=== PATIENT | female | born 1970 | race Caucasian/White ===

== ENCOUNTER 2016-11-14 11:41 | Day surgery (SDC) | payer BC ==
--- NOTE | ~2016-11-14 | OP ---
Record Of Operation [facility] [address] [place]. [address] NAME: JAMI SOTO : 72 STATUS : [facility]#: [id number] AGE: 45 ADM/REG DATE : 11/14/16 MR#: [id number] REPORT SERV DATE: 11/14/16 DICTATED BY: MALIK ORTEGA DATE: 11/14/16 REPORT STATUS : Draft TRANSCRIBED BY: MODL DATE: 11/14/16 DATE OF PROCEDURE: 11/14/2016 PREOPERATIVE DIAGNOSIS: Left sphenoid sinusitis. POSTOPERATIVE DIAGNOSIS: Left sphenoid sinusitis. PROCEDURE: Left sphenoid sinusotomy with tissue removal. SURGEON: Malik Ortega M.D. ANESTHESIA: General endotracheal. ESTIMATED BLOOD LOSS: 5 mL. INTRAOPERATIVE FLUIDS: 700 mL crystalloid. INTRAOPERATIVE FINDINGS: Small opening identified superiorly in the sphenoid sinus, apparently, at the site of her previous sphenoid sinusotomy. In the area of the rostrum of the sphenoid as confirmed with the fusion guidance system was the bulk of the sphenoid sinus. This was opened with an osteotome and the two openings were created in continuity to create one single large opening into the left sphenoid sinus. With the large opening created, no stenting was required. There was purulent material within the left sphenoid sinus which was collected for routine culture. OPERATIVE PROCEDURE: The patient was identified in the holding room, and transported to the operating room. In the operating room, the patient was placed on the operating table in supine position. Following induction of anesthesia, the patient was intubated without difficulty. At this point, the instrumentation was positioned for the fusion guidance system. Afrin-soaked pledgets were placed to the nose, bilaterally. The image guidance system was then registered. Accuracy was confirmed following rigid striation. The patient was then prepped and draped in preparation for her nasal surgery. A rigid nasal endoscopy was performed. There was no purulent debris arising from the sphenoid sinus; however, there was no visible opening into the sinus identified at this point. As noted above, there was a small depression in the superior aspect of the sphenoid sinus which appeared to be the site of previous sphenoid sinusotomy. A #7 suction was gently placed into this area. Upon penetrating the scar, there was purulent drainage identified, which was arising from the sphenoid sinus. The drainage was collected in a Lukens trap and sent for routine culture. On examining the fusion system with the pointer, the area of the sphenoid sinusotomy entered into a small portion of the sphenoid sinus. The bulk of the sphenoid sinus was, however, deep to the sphenoid rostrum. Gentle palpation of this area with a suction did not penetrate the sphenoid sinus. As such, an osteotome was used to create a small window in this area. This did create an opening into the sphenoid sinus which was created in continuity with the previous existing defect, superiorly. Additional bone and soft tissue was removed to create a larger opening into the sphenoid sinus. There was moderate inflammation of the mucosa within the sphenoid sinus with no residual purulent drainage or Record Of Operation [address] [address] NAME: JAMI SOTO : 72 STATUS : [facility] PAT#: [id number] AGE: 45 ADM/REG DATE : 11/14/16 MR#: [id number] REPORT SERV DATE: 11/14/16 DICTATED BY: MALIK ORTEGA DATE: 11/14/16 REPORT STATUS : Draft TRANSCRIBED BY: RADHA DATE: 11/14/16 debris evident. With the large opening into the sphenoid sinus, I opted not to place a dissolvable stent, as had been discussed with the patient, preoperatively. At this point, there was no significant bleeding. The patient was awakened from anesthesia, extubated in the operating room, transported to recovery room in good condition. The patient tolerated the procedure well. There were no apparent complications. SPECIMENS: Included tissue from the left sphenoid sinus with aspirate from the left sphenoid sinus for routine culture. TF/MODL Malik Ortega M.D. / [id number] CC: Allyn Carlson JOHN D.
[~2016-11-14 11:41] MED LIST: DULERA 200 MCG/13 GM INH; FLONASE NAS; KLONO1 PO; PRILOSEC40 MG PO; SINGULAIR1 PO; SPIRIVA INH; [UNRECOGNIZED DRUG - OTHER] SC
== END 2016-11-14 17:37 | disposition home or self-care (01) ==
LOC: SDC 11:41
PROVIDERS: Otolaryngology
PROC: 09B Ear, Nose, Sinus, Excision (ICD-10-PCS; principal; 2016-11-14 13:15)
DX: J32.3 Chronic sphenoidal sinusitis (principal); J45.909 Unspecified asthma, uncomplicated; Z79.51 Long term (current) use of inhaled steroids; F41.9 Anxiety disorder, unspecified; E04.1 Nontoxic single thyroid nodule; K21.9 Gastro-esophageal reflux disease without esophagitis; Z90.710 Acquired absence of both cervix and uterus; Z98.890 Other specified postprocedural states; Z90.721 Acquired absence of ovaries, unilateral; Z79.899 Other long term (current) drug therapy
CPT/HCPCS: 85014; 85018; 87015; 87070; 87075; 87102; 87116; 87205; 88305; A9270-GY; J1956; J2250; J2405; J2710; J3010